=== PATIENT | male | born 1955 ===

== ENCOUNTER 2025-05-15 08:00 | Inpatient (IN) | payer OTHER ==
[~2025-05-15] VITALS: Ht 185.4 cm; Wt 86.2 kg
[2025-05-15 09:29] LABS: BASO % 0.6 % (0.1-1.2); EOS # 0.14 (0.04-0.54); EOS % 2.1 % (0.7-7.0); LYMPH # 1.33 (1.18-3.74); LYMPH % 20.1 % (19.3-53.1); MEAN PLATELET VOLUME 9.00 fl (9.4-12.4); MONO # 0.69 (0.24-0.82); MONO % 10.4 % (4.7-12.5); NEUT # 4.29 (1.56-6.13); NEUT % 64.8 % (34.0-71.1); RED CELL DISTRIBUTION WIDTH 12.1 % (11.6-14.4)
[2025-05-15 09:36] LABS: URINE APPEARANCE Clear; URINE BILIRRUBIN Negative (NEGATIVE); URINE BLOOD Negative; URINE COLOR Yellow; URINE GLUCOSE Negative (NEGATIVE); URINE KETONE Negative (NEGATIVE); URINE LEUKOCYTE Negative; URINE NITRATE Negative; URINE PROTEIN Negative (NEGATIVE); URINE UROBILINOGEN 0.2 E.U./dl
[2025-05-15 09:37] LABS: URINE BACTERIA 4.7 uL (0.0-1933); URINE RBC 2.7 uL (0.0-20.8)
[2025-05-15 09:40] LABS: URINE CAST 0.00 uL (0.0-1.40); URINE EPITHELIAL CELLS 1.0 uL (0.0-38.8); URINE WBC 1.2 uL (0.0-23.2)
[2025-05-15] MEDS ORDERED: VERAPAMIL ER240 MG PO (09:52)
[2025-05-15] MEDS ORDERED: EZALLOR SPRINKL10 MG PO (09:53)
[2025-05-15] MEDS ORDERED: ZESTRIL10 M1 PO (09:53)
[2025-05-15] MEDS ORDERED: TENORMIN25 MG (09:53)
[2025-05-15] MEDS ORDERED: ECOTRIN81 MG PO (09:54)
[2025-05-15 10:00] VITALS: BP 129/83
[2025-05-15 10:11] LABS: INR 1.02
[2025-05-15 10:17] LABS: BUN CREA RATIO 18.0 (7.0-25.0); CREATININE SERUM 1.09 mg/dL (0.70-1.30); GFR 66.88; GLUCOSE FASTING 109.0 mg/dL (65-100); OSMOLALITY SERUM 283.0 MOSM/KG (275-295)
[2025-05-15 10:19] LABS: COVID-19 AG NEGATIVE (NEGATIVE)
[2025-05-15 11:02] LABS: RH POSITIVE
[2025-05-23] MEDS ORDERED: ENOXAPARIN SODIUM 40 MG/0.4 ML SYRINGE SUBCUTANEO NR (07:30)
[2025-05-23] MEDS ORDERED: CEFAZOLIN SODIUM 1,000 MG VIAL IV NR (07:30)
[2025-05-23] MEDS ORDERED: ATENOLOL50 MG (08:57)
[2025-05-23] MEDS ORDERED: ROSUVASTATIN CAL5 MG (08:58)
[2025-05-23] MEDS ORDERED: HEMOSTATIC MATRIX 1 KIT KIT TOP ONE (09:38)
[2025-05-23] MEDS ORDERED: SURGIFLO APPLICATOR 1 EACH APPL TOP ONE (09:38)
[2025-05-23] MEDS ORDERED: SUGAMMADEX SODIUM 200 MG/2 ML VIAL IV ONE (12:09)
[2025-05-23] MEDS ORDERED: ALBUTEROL SULFATE 3 ML/2.5 MG AMPUL.NEB IH ONE (13:19)
[2025-05-23] MEDS ORDERED: RACEPINEPHRINE HCL 0.5 ML AMPUL IH ONE (13:23)
[2025-05-23] MEDS ORDERED: DEXTROSE 5 %-0.45 % SOD CHLORD 1,000 ML IV SCH (15:01)
[2025-05-23] MEDS ORDERED: SIMETHICONE 125 MG CAPSULE PO ONE (16:18)
[2025-05-23] MEDS ORDERED: CEFTRIAXONE SODIUM 2,000 MG VIAL ONE (16:19)
[2025-05-23] MEDS ORDERED: MORPHINE SULFATE 4 MG/ML VIAL IV ONE (16:30)
[2025-05-23] MEDS ORDERED: ONDANSETRON HCL 2 MG/ML VIAL IV SCH (17:00)
[2025-05-23] MEDS ORDERED: MORPHINE SULFATE 2 MG/ML CARTRIDGE IV SCH (17:00)
[2025-05-23] MEDS ORDERED: CEFTRIAXONE SODIUM 2,000 MG in 0.9 % SODIUM CHLORIDE 100 ML IV SCH (17:00)
[2025-05-23] MEDS ORDERED: SIMETHICONE 125 MG CAPSULE PO SCH (17:00)
[2025-05-23] MEDS ORDERED: LEVALBUTEROL HCL 0.63 MG/3 ML SOLUTION IH SCH (17:00)
[2025-05-23] MEDS ORDERED: DOCUSATE SODIUM 100MG CAP PO SCH (17:00)
[2025-05-23 17:35] VITALS: BP 119/64; O2SAT 95
[2025-05-24] VITALS: BP 108/67; O2SAT 100
[2025-05-24 07:29] LABS: BASO % 0.3 % (0.1-1.2); EOS # 0.01 (0.04-0.54); EOS % 0.1 % (0.7-7.0); LYMPH # 0.59 (1.18-3.74); LYMPH % 5.2 % (19.3-53.1); MEAN PLATELET VOLUME 10.30 fl (9.4-12.4); MONO # 0.94 (0.24-0.82); MONO % 8.3 % (4.7-12.5); NEUT # 9.65 (1.56-6.13); NEUT % 85.4 % (34.0-71.1); RED CELL DISTRIBUTION WIDTH 12.2 % (11.6-14.4)
[2025-05-24 07:54] LABS: BUN CREA RATIO 14.0 (7.0-25.0); CREATININE SERUM 1.11 mg/dL (0.70-1.30); GFR 65.49; GLUCOSE FASTING 108.0 mg/dL (65-100); OSMOLALITY SERUM 284.0 MOSM/KG (275-295)
[2025-05-24 08:00] VITALS: BP 120/75; O2SAT 97
[2025-05-24] MEDS ORDERED: VERAPAMIL HCL 120 MG TABLET.SA PO SCH (09:00)
[2025-05-24] MEDS ORDERED: ATENOLOL 25 MG TABLET PO SCH (09:00)
[2025-05-24] MEDS ORDERED: ENOXAPARIN SODIUM 40 MG/0.4 ML SYRINGE SUBCUTANEO NR (12:30)
[2025-05-24 16:00] VITALS: BP 130/78; O2SAT 93
[2025-05-24] MEDS ORDERED: CYCLOBENZAPRINE HCL 5 MG TABLET PO SCH (17:00)
[2025-05-24] MEDS ORDERED: SUCRALFATE 1 G TABLET PO SCH (17:00)
[2025-05-24 23:49] VITALS: BP 125/81; O2SAT 97
[2025-05-25 08:00] VITALS: BP 116/76; O2SAT 96
== END 2025-05-25 14:30 | disposition home or self-care (01) | DRG 708 ==
LOC: SURH 08:00 → O/R 05-23 08:15 → SURG 05-23 08:15
PROVIDERS: ADMIT Urology; ATTEND Urology
PROC: 0VT04ZZ Resection of Prostate, Percutaneous Endoscopic Approach (ICD-10-PCS; principal; 2025-05-25)
DX: C61 Malignant neoplasm of prostate (principal)